=== PATIENT | male | born 1940 ===

== ENCOUNTER 2017-12-04 13:31 | Outpatient (CLI) | payer MEDICARE ==
[~2017-12-04] VITALS: Ht 170.2 cm; Wt 72.1 kg
[~2017-12-04 13:31] MED LIST: CASODEX50 MG ORAL; TAMSULOSIN HCL0.4 MG ORAL
--- NOTE | 2017-12-04 15:48 | GI Initial Consult Note ---
[facility] El[facility] N[facility] 12/04/17 1548: History of Present Illness General Date patient seen: Dec 04, 2017 Time patient seen: 14:00 Referring physician: ANTOINETTE Reason for Consultation: COLONOSCOPY Present Illness HPI 77 year old male patient referred by Dr. Lopez for repeat colonoscopy. Hx of rectal cancer, s/p ?surgery and endoscopy/colonoscopy, see summary below. Presents today with no general GI symptoms. Denies any unintentional weight loss or changes in dietary habits. No signs of abuse or neglect. Patient is not fall risk. 12/25/15 SUMMARY OF FINDINGS: 1. Atrophic gastritis, status post biopsy. 2. Incomplete colonoscopy examination secondary to poor prep. 3. Ulcerative rectal mass starting at about 8 cm from the anal verge expanding to about 12 cm. 4. This mass is T3, N1 based on EUS criteria. Home Meds Reported Medications Ergocalciferol (Vitamin D2) (VITAMIN D2) 2,000 Unit Tablet, 56991 UNIT PO ONCE A WEEK, TAB 12/08/17 Discontinued Reported Medications Bicalutamide (Casodex) 50 Mg Tab, 50 MG ORAL DAILY, TAB 12/22/15 Tamsulosin Hcl (TAMSULOSIN HCL*) 0.4 Mg Cap.er.24h, 0.4 MG ORAL BEDTIME, CAP 12/22/15 Med list reviewed/reconciled: Yes Allergies: Coded Allergies: No Known Allergies (Unverified , 12/22/15) Patient History History Provided By: Patient, Medical Record [facility] Narrative Rectal CA, ?s/p surgery Past Surgical History: other Social History: Reports: smoking - 4 cigarrettes a day Review of Systems All Other Systems: negative except mentioned in HPI Physical Exam T 97.7 BP 145/87 P 81 95 RA HT 5'7 WT 159.3 lbs Sp02 EP Interpretation: reviewed, normal General Appearance: well appearing, no apparent distress, alert Head: normocephalic EENT: PERRL/EOMI, normal ENT inspection Neck: supple Respiratory: normal breath sounds, no respiratory distress Cardiovascular: normal rate Gastrointestinal: normal inspection, non tender, soft, normal bowel sounds, non -distended Rectal: deferred Genitourinary: deferred Musculoskeletal: normal inspection, back normal Neurologic: normal inspection, alert, oriented x3, responsive Psychiatric: normal inspection, judgement/insight normal, memory normal Skin: normal inspection, normal color, no rash, warm/dry, palpation normal, well hydrated Lymphatic: normal inspection, no adenopathy GI: Plan Problems: (1) Rectal cancer (2) Colonoscopy planned Plan EGD/colonoscopy scheduled for 12/08/17. - CLD & (Nulytely/Suprep/Movi-Prep) prep instructions given and acknowledged by patient. - NPO @ [facility] day prior procedure explained. Seen with Dr. Grewal. Thank you for this patient referral. TIANNA GREWAL 12/08/17 1009: History of Present Illness Present Illness Home Meds Reported Medications Ergocalciferol (Vitamin D2) (VITAMIN D2) 2,000 Unit Tablet, 89149 UNIT PO ONCE A WEEK, TAB 12/08/17 Discontinued Reported Medications Bicalutamide (Casodex) 50 Mg Tab, 50 MG ORAL DAILY, TAB 12/22/15 Tamsulosin Hcl (TAMSULOSIN HCL*) 0.4 Mg Cap.er.24h, 0.4 MG ORAL BEDTIME, CAP 12/22/15 Allergies: Coded Allergies: No Known Allergies (Unverified , 12/22/15) GI: Plan Plan The patient was seen and examined at bedside and all new and available data was reviewed in the patients chart. I agree with the above findings, impression and plan. (Patient seen earlier today. Signature stamp does not reflect patient encounter time.). - MD Trinity Bazzi Anh Khoi N.P. Dec 04, 2017 15:48 TIANNA GREWAL Dec 08, 2017 10:09
== END 2017-12-04 14:05 | disposition home or self-care (01) ==
LOC: PAN 13:31
DX: F17.210 Nicotine dependence, cigarettes, uncomplicated (principal); K29.40 Chronic atrophic gastritis without bleeding
CPT/HCPCS: 99212

== ENCOUNTER 2017-12-08 06:59 | Day surgery (SDC) | payer MEDICARE ==
[2017-12-08] VITALS (10 sets, daily range): BP systolic 96–147; BP diastolic 53–82
[~2017-12-08] VITALS: Ht 170.2 cm; Wt 71.7 kg
[2017-12-08] MEDS ORDERED: VITAMIN D22000 UNIT PO (08:23)
[2017-12-08] MEDS ORDERED: Propofol 200mg/20ml IV ONE (09:00)
[2017-12-08] MEDS ORDERED: LR 1000ml ONE (09:00)
--- NOTE | 2017-12-08 09:04 | Pre-Procedure Note/Attestation ---
Pre-Procedure Note/Attestation Complete Prior to Procedure Planned Procedure: not applicable Procedure Narrative: colonoscopy Indications for Procedure Pre-Operative Diagnosis: screening Attestation I attest that I discussed the nature of the procedure; its benefits; risks and complications; and alternatives (and the risks and benefits of such alternatives ), prior to the procedure, with the patient (or the patient's legal sales and merchandising representative). I attest that, if there was a reasonable possibility of needing a blood transfusion, the patient (or the patient's legal sales and merchandising representative) was given the [facility] standardized written summary, pursuant to the [employer] Blood Safety Act ([place] Health and Safety Code # 1645, as amended). I attest that I re-evaluated the patient just prior to the surgery and that there has been no change in the patient's H&P, except as documented below: TIANNA CELAYA Dec 08, 2017 09:04
--- NOTE | 2017-12-08 09:06 | Pre-Procedure Note/Attestation ---
Pre-Procedure Note/Attestation Complete Prior to Procedure Procedure Narrative: egd Indications for Procedure Pre-Operative Diagnosis: GERD Attestation I attest that I discussed the nature of the procedure; its benefits; risks and complications; and alternatives (and the risks and benefits of such alternatives ), prior to the procedure, with the patient (or the patient's legal communications representative). I attest that, if there was a reasonable possibility of needing a blood transfusion, the patient (or the patient's legal communications representative) was given the [facility] standardized written summary, pursuant to the [employer] Blood Safety Act ([place] Health and Safety Code # 1645, as amended). I attest that I re-evaluated the patient just prior to the surgery and that there has been no change in the patient's H&P, except as documented below: TIANNA CELAYA Dec 08, 2017 09:06
--- NOTE | 2017-12-08 09:09 | Short Stay Surgery H&P ---
History of Present Illness History of Present Illness Chief Complaint see recent office consult note HPI Cortez Nina is a 77 year old male who was admitted on for Colon Screening, Abdominal Pain Patient History Allergies: Coded Allergies: No Known Allergies (Unverified , 12/22/15) PAST MEDICAL HISTORY: Past Surgeries: Social History: Medication History Scheduled Ergocalciferol (Vitamin D2) (Vitamin D2), 50,000 UNIT PO ONCE A WEEK, (Reported) Discontinued Medications Bicalutamide (Casodex), 50 MG ORAL DAILY, (Reported) Discontinued Reason: Pt stopped taking med Tamsulosin Hcl (Tamsulosin Hcl*), 0.4 MG ORAL BEDTIME, (Reported) Discontinued Reason: Pt stopped taking med Physical Exam Vital Signs Last Vital Signs Date Time Temp Pulse Resp B/P (MAP) Pulse Ox O2 Delivery O2 Flow Rate FiO2 12/08/17 08:21 97.5 66 20 135/81 99 Room Air 97.5 Plan Attestation Are the patient's medical conditions optimized for surgery? TIANNA CELAYA Dec 08, 2017 09:09
[2017-12-08] MEDS ORDERED: LR 1000ml 1,000 ML IVLG SCH (09:10)
[2017-12-08] MEDS ORDERED: LR 1000ml 1,000 ML IV SCH (09:15)
[2017-12-08] MEDS ORDERED: fentaNYL 100 mcg/2 mL IV PRN (09:15)
--- NOTE | 2017-12-08 09:34 | Anethesia Preoperative Eval ---
Anesthesia Pre-op PMH/ROS General Date of Evaluation: Dec 08, 2017 Time of Evaluation: 09:10 Anesthesiologist: John ASA Score: ASA 3 Mallampati Score Class I : Soft palate, uvula, fauces, pillars visible Class II: Soft palate, uvula, fauces visible Class III: Soft palate, base of uvula visible Class IV: Only hard plate visible Mallampati Classification: Class I Surgeon: Carmina Diagnosis: GERD, rectal CA Surgical Procedure: EGD, Colonoscopy Family History: no anesthesia problems Allergies: Coded Allergies: No Known Allergies (Unverified , 12/22/15) Medications: see eMAR Past Medical History Cardiovascular: Denies: HTN, CAD, MS, valve dz, arrhythmia, other Pulmonary: Denies: asthma, COPD, LUCAS, other Gastrointestinal/Genitourinary: Reports: GERD, Denies: CRI, ESRD, other Neurologic/Psychiatric: Denies: dementia, CVA, depression/anxiety, TIA, other Endocrine: Denies: DM, hypothyroidism, steroids, other HEENT: Denies: cataract (L), cataract (R), glaucoma, [place] (L), [place] (R), other Hematology/Immune: Denies: anemia, DVT, bleeding disorder, other Musculoskeletal/Integumentary: Denies: OA, RA, DJD, DDD, edema, other PMH Narrative: Rectal CA, GERD PSxH Narrative: Rectal surgery Anesthesia Pre-op Phys. Exam Physician Exam Last Vital Signs Date Time Temp Pulse Resp B/P (MAP) Pulse Ox O2 Delivery O2 Flow Rate FiO2 18 08:21 97.5 66 20 135/81 99 Room Air 97.5 Constitutional: NAD Neurologic: CN 2-12 intact Cardiovascular: RRR, no M/R/G Respiratory: CTA Gastrointestinal: S/NT/ND Airway Exam Mallampati Score: Class II MO: full ROM: full Dentures: upper, lower Anesthesia Pre-op A/P Studies Pre-op Studies: EKG - SR Risk Assessment & Plan Assessment: Rectal CA and GERD now for EGD/Colonoscopy Plan: GA, TIVA Status Change Before Surgery: No Pre-Antibiotics Drug: None TORRI WALKER M.D. Dec 08, 2017 09:34
--- NOTE | 2017-12-08 09:35 | Immediate Post-Op Evaluation ---
Immediate Post-Op Evalulation Immediate Post-Op Evalulation Procedure: EGD, Colonoscopy Date of Evaluation: Dec 08, 2017 Time of Evaluation: 10:05 IV Fluids: 200 Blood Pressure Systolic: 86 Blood Pressure Diastolic: 59 Pulse Rate: 66 Respiratory Rate: 20 O2 Sat by Pulse Oximetry: 100 Temperature (Fahrenheit): 97.0 Pain Score (1-10): 0 Nausea: No Vomiting: No Complications No complication Patient Status: awake, patent, none Hydration Status: adequate Drug: None TORRI WALKER M.D. Dec 08, 2017 09:35
--- NOTE | 2017-12-08 10:00 | Endoscopy Procedure Note ---
Endoscopy Procedure Note General Indication for Procedure: h/o rectal cancer, GERD Procedures Performed: EGD, colonoscopy Operative Findings/Diagnosis: gastritis, emorrhoids Specimen: yes Pt Tolerated Procedure Well: Yes Estimated Blood Loss: none Anesthesia Anesthesiologist: chastity Anesthesia: MAC Inserted Devices Implant(s) used?: No Quality Quality of Bowel Preparation: Good Did scope reach the cecum?: Yes Was there any complications?: No GI Core Measures 50 yrs or older w/o bx or poly: No 10yrs. F/U not recommended: Yes If not recommended, why?: Above average risk 10 yrs. F/U needed: Yes 18 years or older w/prev. colo: Yes <3yrs. since last colonoscopy: No TIANNA CELAYA Dec 08, 2017 10:00
--- NOTE | 2017-12-08 10:03 | 48 Hour Post Anesthesia Eval ---
Post Anesthesia Evaluation Procedure: EGD, Colonoscopy Date of Evaluation: Dec 08, 2017 Time of Evaluation: 10:30 Blood Pressure Systolic: 107 0: 60 Pulse Rate: 56 Respiratory Rate: 18 O2 Sat by Pulse Oximetry: 100 Airway: patent Nausea: No Vomiting: No Pain Intensity: 0 Hydration Status: adequate Cardiopulmonary Status: Stable Mental Status/LOC: patient returned to baseline Follow-up Care/Observations: As per surgery Post-Anesthesia Complications: No anesthetic complication Follow-up care needed: N/A TORRI WALKER M.D. Dec 08, 2017 10:02
--- NOTE | 2017-12-08 15:30 | Procedure Note ---
DATE OF PROCEDURE: 12/08/2017 SURGEON: Branden Grewal M.D. PROCEDURE: Upper endoscopy with biopsy and colonoscopy. ANESTHESIA: Per Dr. Lopez. INSTRUMENT: Olympus adult flexible upper endoscope and colonoscope. INDICATIONS: Screening colonoscopy evaluation, history of rectal cancer, and chronic acid reflux disease. The procedure, risks, benefits, and possible consequences, including hemorrhage, aspiration, perforation and infection, and alternative treatments, were explained to the patient/legal guardian by Dr. Branden Grewal and the patient/legal guardian understood and accepted these risks. DESCRIPTION OF PROCEDURE: After informed consent was obtained and the patient was adequately sedated, Olympus upper endoscope was advanced from mouth into the second portion of duodenum and retroflexion was performed in the stomach. The patient had evidence of diffuse gastritis and some mild to moderate atrophic gastritis. Biopsies from antrum and body were obtained to rule out H. pylori infection. There was a small nodule in the lower gastric body along the greater curvature, un-significant importance. Biopsy from this notch was obtained. At this time, the upper endoscope was retrieved. The patient was turned over for colonoscopy. First, a rectal exam was performed, which was positive for internal hemorrhoids. Then, the scope was advanced from rectum into the cecum, documented by appendix orifice, ileocecal valve, and right upper quadrant palpation. Quality of prep was very good. The patient had suture line few centimeters above the dentate line. No obvious recurrent cancer seen at the suture line. The rest of the colonoscopy examination grossly looked within normal limit. Retroflexion of rectum showed evidence of few small nonbleeding internal hemorrhoids. SUMMARY FINDINGS: 1. Atrophic gastritis, status post biopsy. 2. Gastric nodule status post biopsy. 3. Suture line few centimeters above the Z-line without any obvious recurrent rectal cancer. 4. Internal hemorrhoids. RECOMMENDATIONS: Follow up biopsies and treat accordingly. I want to thank, Dr. La Lopez, for this kind referral. Branden Grewal M.D. DR: ALEXANDRE JOB#: [id number] CC: La Lopez M.D.; Fax#: [phone]
--- NOTE | 2017-12-09 19:56 | Cardiology Report ---
APPROVED REPORT EKG Measurement Heart [id number] NV [id number] Sinus bradycardia with marked sinus arrhythmia Otherwise normal ECG
== END 2017-12-08 11:35 | disposition home or self-care (01) ==
LOC: GAS 06:59
DX: Z12.11 Encounter for screening for malignant neoplasm of colon (principal); Z85.048 Personal history of other malignant neoplasm of rectum, rectosigmoid junction, and anus; K21.9 Gastro-esophageal reflux disease without esophagitis; R00.1 Bradycardia, unspecified; I49.9 Cardiac arrhythmia, unspecified; K64.8 Other hemorrhoids; K29.40 Chronic atrophic gastritis without bleeding
CPT/HCPCS: 43239; 93005; G0121; J2704; J7120; 94003; 94150

== ENCOUNTER 2018-01-13 11:01 | Outpatient (CLI) | payer MEDICARE ==
[~2018-01-13 11:01] MED LIST changes: +VITAMIN D22000 UNIT PO
[2018-01-13 12:34] VITALS: BP 141/81
--- NOTE | 2018-01-13 16:35 | GI Progress Note ---
Assessment/Plan Problems: (1) Rectal cancer ICD Codes: C20 - Malignant neoplasm of rectum SNOMED: 953379766 Status: stable Status Narrative Seen with Dr. Grewal. Assessment/Plan SUMMARY FINDINGS reviewed with patient: 1. Atrophic gastritis, status post biopsy. 2. Gastric nodule status post biopsy. 3. Suture line few centimeters above the Z-line without any obvious recurrent rectal cancer. 4. Internal hemorrhoids. RECOMMENDATIONS: Follow up biopsies and treat accordingly. >> unremarkable. repeat colon x 5 years RTC prn Subjective Gastrointestinal/Abdominal: Reports: no symptoms Objective Last 24 Hour Vital Signs Date Time Temp Pulse Resp B/P (MAP) Pulse Ox O2 Delivery O2 Flow Rate FiO2 01/13/18 12:34 98.1 88 141/81 96 98.1 General Appearance: WD/WN, no apparent distress, alert Cardiovascular: normal rate Respiratory/Chest: normal breath sounds, no respiratory distress Abdominal Exam: normal bowel sounds, non tender, soft Extremities: normal range of motion, non-tender Ruth Ann Petersen N.P. Jan 13, 2018 16:35
== END 2018-01-13 11:35 | disposition home or self-care (01) ==
LOC: PAN 11:01
DX: C20 Malignant neoplasm of rectum (principal); K29.40 Chronic atrophic gastritis without bleeding; K64.8 Other hemorrhoids
CPT/HCPCS: 99212

== ENCOUNTER 2018-06-01 13:19 | Outpatient (CLI) | payer MEDICARE ==
--- NOTE | 2018-06-01 14:00 | GI Progress Note ---
Assessment/Plan Problems: (1) Anemia ICD Codes: D64.9 - Anemia, unspecified SNOMED: 024029627 (2) Encounter for diagnostic endoscopy ICD Codes: Z01.818 - Encounter for other preprocedural examination SNOMED: 189681528, 428492294 (3) Rectal cancer ICD Codes: C20 - Malignant neoplasm of rectum SNOMED: 767820758 Status: stable Status Narrative Seen with Dr. Grewal. Assessment/Plan plan for SBCE next 06/11/18. - CLD & (Nulytely/Suprep/Movi-Prep) prep instructions given and acknowledged by patient. - NPO @ [place] day prior procedure explained. The patient was seen and examined at bedside and all new and available data was reviewed in the patients chart. I agree with the above findings, impression and plan. (Patient seen earlier today. Signature stamp does not reflect patient encounter time.). - Branden Grewal MD Subjective Gastrointestinal/Abdominal: Reports: no symptoms Objective T 98.1 BP 132/70 P 42 97 RA General Appearance: WD/WN, no apparent distress, alert Cardiovascular: normal rate Respiratory/Chest: normal breath sounds, no respiratory distress Abdominal Exam: normal bowel sounds, non tender, soft Extremities: normal range of motion, non-tender Hilton Petersen ONLINE JOURNALIST Jun 01, 2018 14:00
[2018-06-01 15:04] VITALS: BP 132/70
== END 2018-06-01 13:49 | disposition home or self-care (01) ==
LOC: PAN 13:19
DX: D64.9 Anemia, unspecified (principal); C20 Malignant neoplasm of rectum
CPT/HCPCS: 99213

== ENCOUNTER 2018-06-11 08:05 | Outpatient (CLI) | payer MEDICARE ==
[2018-06-11 15:52] VITALS: BP 119/71
--- NOTE | 2018-06-11 16:28 | GI Progress Note ---
Assessment/Plan Problems: (1) Encounter for diagnostic endoscopy ICD Codes: Z01.818 - Encounter for other preprocedural examination SNOMED: 187650198, 958050629 (2) Anemia ICD Codes: D64.9 - Anemia, unspecified SNOMED: 431069208 Status: stable Status Narrative Discussed with Dr. Grewal. Assessment/Plan SBCE today, RTC tomorrow for equipment return. follow up results, will contact patient to schedule appt. Subjective Gastrointestinal/Abdominal: Reports: no symptoms Objective Last 24 Hour Vital Signs Date Time Temp Pulse Resp B/P (MAP) Pulse Ox O2 Delivery O2 Flow Rate FiO2 06/11/18 15:52 97.6 46 16 119/71 97 97.6 General Appearance: WD/WN, no apparent distress, alert Cardiovascular: normal rate Respiratory/Chest: normal breath sounds, no respiratory distress Abdominal Exam: normal bowel sounds, non tender, soft Extremities: normal range of motion, non-tender Hilton Petersen NP Jun 11, 2018 16:28
== END 2018-06-11 08:35 | disposition home or self-care (01) ==
LOC: PAN 08:05
DX: Z01.818 Encounter for other preprocedural examination (principal); D64.9 Anemia, unspecified